=== PATIENT | male | born 1985 | race Caucasian/White ===

== ENCOUNTER → 2020-09-27 14:04 | Outpatient (BNVA) | payer SELFPAY | PROVIDERS: PCP Internal Medicine; Visit Provider Internal Medicine ==

== ENCOUNTER 2021-12-19 11:11 | Outpatient (REF) | payer OTHER, SELFPAY ==
[2021-12-19 11:17] LABS: MANUAL DIFF FLAG NO
[2021-12-19 11:45] LABS: Basophils Absolute Auto 0.1 X10*3/uL (0.0-0.2); Basophils Percent Auto 0.9 % (0-2); Eosinophils Absolute Auto 0.1 X10*3/uL (0.0-0.4); Eosinophils Percent Auto 1.2 % (0-4); Hematocrit 43.4 % (42.0-52.0); Hemoglobin 15.5 g/dl (14.0-18.0); Imm Gran Abs Auto 0.02 X10*3/uL (0.00-0.03); Imm Gran Pct Auto 0.4 % (0.0-0.4); Lymphocytes Absolute Auto 2.1 X10*3/uL (1.2-4.9); Lymphocytes Percent Auto 36.6 % (20-40); Mean Corpuscular HGB Conc 35.7 g/dl (31.0-36.0); Mean Corpuscular Hemoglobin 30.9 pg (27.0-33.0); Mean Corpuscular Volume 86.5 fL (80.0-98.0); Mean Platelet Volume 12.3 fL (9.4-12.4); Monocytes Absolute Auto 0.5 X10*3/uL (0.1-1.2); Monocytes Percent Auto 8.1 % (2-11); Neutrophils Percent Auto 52.8 % (45-73); Platelet Count 220 X10*3/uL (160-400); Red Blood Count 5.02 X10*6/uL (4.60-5.80); Red Cell Distribution Width 11.9 % (11.0-16.0); White Blood Count 5.7 X10*3/uL (4.8-10.8)
[2021-12-19 11:58] LABS: Alanine Aminotransferase 15 U/L (0-40); Albumin Level 4.5 g/dL (3.5-5.0); Alkaline Phosphatase 58 U/L (39-117); Anion Gap 13 (12-20); Aspartate Amino Transferase 16 U/L (5-37); Bilirubin Total 0.6 mg/dL (0.0-1.0); Blood Urea Nitrogen 19 mg/dL (9-16); Calcium 9.2 mg/dL (8.4-10.2); Carbon Dioxide 26 mmol/L (22-29); Chloride 105 mmol/L (96-108); Cholesterol 160 mg/dL; Estimated Glomerular Filt Rate > 60; Glucose Random 95 mg/dL (60-115); HDL Cholesterol 47 mg/dL; LDL Cholesterol Calculated 102 mg/dl; Potassium 3.9 mmol/L (3.3-5.1); Sodium 140 mmol/L (135-145); Total Protein 7.3 g/dL (6.5-8.0); Triglycerides 59 mg/dL
[2021-12-19 12:19] LABS: PSA,Total (Free>4and<10) 0.44 ng/mL (0.00-4.00)
[2021-12-19 12:20] LABS: Appearance Urine Clear; Color Urine Yellow; Glucose Urine UA Negative (Negative); Leukocyte Esterase Urine Negative (Negative); Nitrite Urine Negative (Negative); Specific Gravity - Urine >= 1.030 (1.005-1.025); Urine Blood Negative (Negative); Urine Ketones Negative (Negative); Urine Protein Negative (Neg-Trace)
[2021-12-19 12:27] LABS: Bacteria Urine None Seen (None Seen); Hyaline Casts Urine 0-2 /LPF (0-2); RBC Urine 0-2 /HPF (0-2); Squamous Epithelial Cell Urine 0-2 /HPF (0-2); WBC Urine 0-5 /HPF (0-5)
== END 2021-12-19 11:12 | disposition home or self-care (01) ==
LOC: HO.LNP 11:11
PROVIDERS: Visit Provider Internal Medicine
DX: Z00.00 Encounter for general adult medical examination without abnormal findings (principal); Z12.5 Encounter for screening for malignant neoplasm of prostate; N40.1 Benign prostatic hyperplasia with lower urinary tract symptoms
CPT/HCPCS: 80053; 80061; 81001; 84153; 85025; 87086

== ENCOUNTER 2022-10-21 15:50 | Outpatient (RCR) | payer OTHER, SELFPAY ==
--- NOTE | 2022-10-21 16:46 | MHC.PT.EP ---
[facility] [place] [facility] [place] [facility] [place] [facility] [address] Ana Dyson [address] [phone] F: [phone] F: [phone] F: [phone] F: [phone] Physical Therapy Plan of Care Date of Evaluation: Date of Surgery: one month Diagnosis: sciatica (RL) Assessment: pt is a 36 y/o male presenting to physical therapy w/ referring diagnosis of sciatica. pt's signs and symptoms are consistent w/ lumbar radiculopathy. Impairments include pain, decreased range of motion, decreased strength, impaired functional mobility, impaired postural awareness, and altered ambulation mechanics. pt is a good candidate for skilled PT due to age, potential remediation of impairments, typical disease/condition progression and prognosis, comorbidities, and motivation. pt would benefit from skilled PT intervention to provide a tailored strengthening and stretching exercise program, functional training, gait training, postural re-training, neuromuscular re-education, modalities as needed for pain, equipment safety demonstration. Frequency and Duration: The patient will be seen 2x/wk for 4 wks Short Term Goals: pt will be I w/ HEP to promote self-management of condition. pt will demo proper sitting posture w/ lumbar roll to promote neutral spine w/ seated ADLs. 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 pt will report a statistically significant improvement in self-reported outcome measure, Larisa, to promote return to PLOF. Treatment Plan: Modalities to reduce pain, spasms and effusion. Manual therapy to restore motion and function. Therapeutic exercise to improve strength and flexibility. Neuromuscular re-education for posture and balance. Therapeutic activities to return to functional activities of daily living. Electronically signed by: Lucina Dyer PT, DPT Please sign and return to therapist. Thank you for your referral.
--- NOTE | 2022-11-10 09:18 | MHC.PT.DC ---
[facility] [place] Office [place] Office [place] Office [address] Ana Dyson [address] [phone] F: [phone] F: [phone] F: [phone] F: [phone] Physical Therapy Discharge Report Diagnosis: sciatica (RL) Date of Surgery: one month Date of Evaluation: 10/21/22 Date of Discharge: 11/10/22 Treatments to Date: 1 Cancellations to Date: 0 No Shows to Date: 2 Discharge Status: Visit Non-compliance Discharge Summary: The patient no showed two consecutive appointments. Per [facility] Therapy attendance policy he is being discharged for non-compliance. Electronically signed by: Lucina Dyer PT, DPT Please sign and return to therapist. Thank you for your referral.
== END 2022-11-10 09:18 | disposition home or self-care (01) ==
LOC: HO.PT 15:50
PROVIDERS: PCP Internal Medicine; Visit Provider Internal Medicine
DX: M54.31 Sciatica, right side (principal)
CPT/HCPCS: 97110; 97161

== ENCOUNTER 2022-12-24 11:14 | Outpatient (REF) | payer OTHER, SELFPAY ==
[2022-12-24 11:18] LABS: MANUAL DIFF FLAG NO
[2022-12-24 11:31] LABS: Appearance Urine Clear; Basophils Absolute Auto 0.1 X10*3/uL (0.0-0.2); Basophils Percent Auto 0.9 % (0-2); Color Urine Yellow; Eosinophils Absolute Auto 0.2 X10*3/uL (0.0-0.4); Eosinophils Percent Auto 2.2 % (0-4); Glucose Urine UA Negative (Negative); Hematocrit 46.3 % (42.0-52.0); Hemoglobin 15.9 g/dl (14.0-18.0); Imm Gran Abs Auto 0.03 X10*3/uL (0.00-0.03); Imm Gran Pct Auto 0.4 % (0.0-0.4); Leukocyte Esterase Urine Negative (Negative); Lymphocytes Absolute Auto 2.5 X10*3/uL (1.2-4.9); Lymphocytes Percent Auto 35.4 % (20-40); Mean Corpuscular HGB Conc 34.3 g/dl (31.0-36.0); Mean Corpuscular Hemoglobin 30.7 pg (27.0-33.0); Mean Corpuscular Volume 89.4 fL (80.0-98.0); Mean Platelet Volume 12.6 fL (9.4-12.4); Monocytes Absolute Auto 0.7 X10*3/uL (0.1-1.2); Monocytes Percent Auto 9.5 % (2-11); Neutrophils Absolute Auto 3.6 x10*3/uL (2.0-8.3); Neutrophils Percent Auto 51.6 % (45-73); Nitrite Urine Negative (Negative); PH 5.5 (5.0-9.0); Platelet Count 226 X10*3/uL (160-400); Red Blood Count 5.18 X10*6/uL (4.60-5.80); Urine Blood Negative (Negative); Urine Ketones Negative (Negative); Urine Protein Negative (Neg-Trace); White Blood Count 6.9 X10*3/uL (4.8-10.8)
[2022-12-24 11:33] LABS: Bacteria Urine None Seen (None Seen); Hyaline Casts Urine 0-2 /LPF (0-2); RBC Urine 0-2 /HPF (0-2); Squamous Epithelial Cell Urine 0-2 /HPF (0-2); WBC Urine 0-5 /HPF (0-5)
[2022-12-24 11:39] LABS: Alanine Aminotransferase 40 U/L (0-40); Albumin Level 4.4 g/dL (3.5-5.0); Alkaline Phosphatase 65 U/L (39-117); Anion Gap 11 (12-20); Aspartate Amino Transferase 24 U/L (5-37); Bilirubin Total 0.4 mg/dL (0.0-1.0); Blood Urea Nitrogen 16 mg/dL (9-16); Calcium 9.6 mg/dL (8.4-10.2); Carbon Dioxide 25 mmol/L (22-29); Chloride 105 mmol/L (96-108); Cholesterol 189 mg/dL (<200); Estimated Glomerular Filt Rate > 60; Glucose Fasting 94 mg/dL (60-99); HDL Cholesterol 40 mg/dL (>40); Potassium 3.5 mmol/L (3.3-5.1); Sodium 137 mmol/L (135-145); Total Protein 7.4 g/dL (6.5-8.0); Triglycerides 413 mg/dL (<150)
== END 2022-12-24 11:15 | disposition home or self-care (01) ==
LOC: HO.LNP 11:14
PROVIDERS: Visit Provider Internal Medicine
DX: Z00.00 Encounter for general adult medical examination without abnormal findings (principal); Z20.2 Contact with and (suspected) exposure to infections with a predominantly sexual mode of transmission; E78.1 Pure hyperglyceridemia
CPT/HCPCS: 80053; 80061; 81001; 85025

== ENCOUNTER 2022-12-31 08:56 | Outpatient (REF) | payer OTHER, SELFPAY ==
[2022-12-31 10:44] LABS: HIV AB/AG Nonreactive (Nonreactive); HIV Num 1 0.08 S/CO (0.00-0.99)
[2022-12-31 13:52] LABS: CT PCR NOT DETECTED (Not Detect.); NG PCR NOT DETECTED (Not Detect.)
== END 2022-12-31 08:57 | disposition home or self-care (01) ==
LOC: HO.LAB 08:56
PROVIDERS: PCP Internal Medicine; Visit Provider Internal Medicine
DX: R30.0 Dysuria (principal); Z20.2 Contact with and (suspected) exposure to infections with a predominantly sexual mode of transmission
CPT/HCPCS: 0353U; 36415; 87086; 87389

== ENCOUNTER 2023-04-08 11:39 | Outpatient (REF) | payer OTHER, SELFPAY ==
[2023-04-08 12:35] LABS: Alanine Aminotransferase 22 U/L (0-40); Albumin Level 4.6 g/dL (3.5-5.0); Alkaline Phosphatase 50 U/L (39-117); Aspartate Amino Transferase 22 U/L (5-37); Bilirubin Direct 0.4 mg/dL (0.0-0.5); Bilirubin Total 1.3 mg/dL (0.0-1.0); Cholesterol 181 mg/dL (<200); HDL Cholesterol 39 mg/dL (>40); LDL Cholesterol Calculated 117 mg/dL (<100); Total Protein 7.5 g/dL (6.5-8.0); Triglycerides 129 mg/dL (<150)
[2023-04-08 12:55] LABS: Reflex LDLD? No
== END 2023-04-08 11:40 | disposition home or self-care (01) ==
LOC: HO.LNP 11:39
PROVIDERS: Visit Provider Internal Medicine
DX: E78.1 Pure hyperglyceridemia (principal)
CPT/HCPCS: 80061; 80076

== ENCOUNTER 2024-01-13 12:00 | Outpatient (REF) | payer OTHER, SELFPAY ==
[2024-01-13 12:04] LABS: MANUAL DIFF FLAG NO
[2024-01-13 12:10] LABS: Basophils Absolute Auto 0.1 X10*3/uL (0.0-0.2); Basophils Percent Auto 0.7 % (0-2); Eosinophils Absolute Auto 0.1 X10*3/uL (0.0-0.4); Hematocrit 44.6 % (42.0-52.0); Hemoglobin 15.8 g/dl (14.0-18.0); Imm Gran Abs Auto 0.03 X10*3/uL (0.00-0.03); Imm Gran Pct Auto 0.4 % (0.0-0.4); Lymphocytes Absolute Auto 2.7 X10*3/uL (1.2-4.9); Lymphocytes Percent Auto 38.4 % (20-40); Mean Corpuscular HGB Conc 35.4 g/dl (31.0-36.0); Mean Corpuscular Hemoglobin 30.9 pg (27.0-33.0); Mean Corpuscular Volume 87.3 fL (80.0-98.0); Mean Platelet Volume 12.3 fL (9.4-12.4); Monocytes Absolute Auto 0.6 X10*3/uL (0.1-1.2); Monocytes Percent Auto 8.1 % (2-11); Neutrophils Absolute Auto 3.6 x10*3/uL (2.0-8.3); Neutrophils Percent Auto 51.4 % (45-73); Platelet Count 212 X10*3/uL (160-400); Red Blood Count 5.11 X10*6/uL (4.60-5.80); Red Cell Distribution Width 12.1 % (11.0-16.0); White Blood Count 6.9 X10*3/uL (4.8-10.8)
[2024-01-13 12:13] LABS: Appearance Urine Clear; Color Urine Yellow; Glucose Urine UA Negative (Negative); Leukocyte Esterase Urine Negative (Negative); Nitrite Urine Negative (Negative); PH 6.5 (5.0-9.0); Specific Gravity - Urine 1.015 (1.005-1.025); Urine Blood Negative (Negative); Urine Ketones Negative (Negative); Urine Protein Negative (Neg-Trace)
[2024-01-13 12:16] LABS: Bacteria Urine None Seen (None Seen); Hyaline Casts Urine 0-2 /LPF (0-2); RBC Urine 0-2 /HPF (0-2); Squamous Epithelial Cell Urine 0-2 /HPF (0-2); WBC Urine 0-5 /HPF (0-5)
[2024-01-13 12:26] LABS: Alanine Aminotransferase 24 U/L (0-40); Albumin Level 4.6 g/dL (3.5-5.0); Alkaline Phosphatase 56 U/L (39-117); Anion Gap 9 (12-20); Aspartate Amino Transferase 26 U/L (5-37); Bilirubin Total 1.6 mg/dL (0.0-1.0); Blood Urea Nitrogen 13 mg/dL (9-16); Calcium 9.7 mg/dL (8.4-10.2); Carbon Dioxide 28 mmol/L (22-29); Chloride 104 mmol/L (96-108); Cholesterol 163 mg/dL (<200); Estimated Glomerular Filt Rate > 60; Glucose Fasting 78 mg/dL (60-99); HDL Cholesterol 46 mg/dL (>40); LDL Cholesterol Calculated 96 mg/dL (<100); Potassium 3.8 mmol/L (3.3-5.1); Sodium 137 mmol/L (135-145); Total Protein 7.6 g/dL (6.5-8.0); Triglycerides 108 mg/dL (<150)
== END 2024-01-13 12:01 | disposition home or self-care (01) ==
LOC: HO.LNP 12:00
PROVIDERS: Visit Provider Internal Medicine
DX: Z00.00 Encounter for general adult medical examination without abnormal findings (principal); E78.1 Pure hyperglyceridemia
CPT/HCPCS: 80053; 80061; 81001; 85025

== ENCOUNTER 2025-01-15 11:02 | Outpatient (REF) | payer SELFPAY ==
--- OUTSIDE RECORDS SUMMARY | 2023-11-12 07:14 | XMS_ITS ---
Author Organization Cody Gibson MD Address [address] [place] [phone] Care Team Providers Care Charge Weigher Name Role Phone Cody Gibson Primary Care Provider REASON FOR VISIT work excuse note Encounters Encounter Location Date Provider Diagnosis Cody Gibson MD [address] [place], [place] [phone] 11/12/2023 Cody Gibson Plan Of Treatment Next Appt Details Provider Name:Cody Givens ier, 01/22/2025 10:30:00 AM, [address], [address], [place], [place], [phone], Progress Notes * Nabil ROGERSDOB: [birth year] (37 yo M)Acc No.[id number]:11/12/2023 Patient: Nabil Tejeda :1985 A ge:37 Y S ex:Male Address:[address] [place] [address], [id number] * true * Date: Generated for Printi ng/Faxing/eTransmitting on: 0 01/15/2025 12:31 PM EDT
--- OUTSIDE RECORDS SUMMARY | 2023-11-12 08:45 | XMS_ITS ---
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 Role Phone Cody Gibson Primary Care Provider Allergies No Known Allergies REASON FOR VISIT work note anxiety Medications Medication SIG (Take, Route, Frequency, Duration) Notes Start Date End Date Status Ibuprofen 800 MG 1 tablet with food o r milk as needed Orally every 8 hrs for 10 days 09/29/2022 Not-Taki ng Cyclobenzaprine HCl 5 MG 1 tablet at bed time as needed Orally Once a night for 10 days 09/29/2022 Not-Taking Problems Problem Type SNOMED Code ICD Code Onset Dates Problem Status W/U Status Risk Notes Problem [id number] Situational anxiety (F41.8) Active confirmed Vital Signs Blood pressure systolic 112 mm Hg 11/12/19 24 Blood pressure diastolic 70 mm Hg 024 Height 65 in 11/12/2023 Weight 160 lbs 11/12/2023 BMI 26.62 kg/m2 11/12/2023 Encounters Encounter Location Date Provider Diagnosis Cody Gibson MD [address] [place] [phone] 11/12/2023 Cody Gibson Situational anxiety F41.8 Assessments Encounter Date Diagnosis (ICD Code) Assessment Notes Treatment Notes Treatment Clinical Notes Section Notes 11/12/2023 Situational anxiety (ICD-10 - F41.8) has not been able to work this week.feels at times he is not able to concentrate. is going to [facility] and speaking with a counsellor. they are trying to get him in contact with a psychologist. have given him the information of [facility] [place] Plan Of Treatment Treatment Notes Assessment Notes Situational anxiety has not been able to work this week.feels at times he is not able to concentrate. is going to [facility] and speaking with a counsellor. they are trying to get him in contact with a psychologist. have given him the information of [facility] [place] Next Appt Details Provider Name:Cody Givens ier, 01/22/2025 10:30:00 AM, [address] [place] [address], [address], [place], [place], [phone], Progress Notes * Nabil ROGERSDOB: [birth year] (37 yo M)Acc No.[id number]:11/12/2023 Progress Notes Patient: Nabil Tejeda Provider: Savannah Gibson MD :1985 A ge:37 Y S ex:Male Date:11/12/2023 Address:[address] [place], [place] [phone] Subjective: * Chief Complaints: * W ork note anxiety * HPI: S ymptom(s): patient is a 37 yo male having a lot of stress and is very anxious. is going to a counsellor to speak about these issues. * ROS: G eneral/Constitutional: Denies C hills. D enies F atigue. D enies F ever. D enies H eadache. E NT: Patient denies d ecreased sense of smell, any loss of taste, sore throat. D enies S ore throat. R espiratory: Denies C ough. D enies S hortness of breath at rest. D enies S hortness of breath with exertion. G astrointestinal: Denies D iarrhea. D enies N ausea. M usculoskeletal: Patient denies m uscle aches. P eripheral Vascular: Patient denies r ed and blue toes. P sychiatric: Admits A nxiety. D enies D epressed mood. D enies D ifficulty sleeping. D enies E ating disorder. D enies L oss of appetite.?Admits S tressors. D enies S ubstance abuse. D enies S uicidal thoughts. * Medical History: * Surgical History: * Hospitalization/Major Diagno stic Procedure: * Medications: N ot-Taking/PRNIbuprofen 800 MG Tablet 1 tablet with food or milk as needed Orally every 8 hrsCyclobenzaprine HCl 5 MG Tablet 1 tablet at bedtime as needed Orally Once a nightNot-Taking/PRN Ibuprofen 800 MG Tablet 1 tablet with food or milk as needed Orally every 8 hrsNot-Taking/PRN Cyclobenzaprine HCl 5 MG Tablet 1 tablet at bedtime as needed Orally Once a night * Allergies: N .K.D.A.yes[Allergies Verified] Objective: * Vitals: H t: 65, Wt:160, BMI:26.62, BP:112/70. * Examination: G eneral Examination: GENERAL APPEARANCE: alert, well hydrated, in no distress? / appears anxious. Assessment: * Assessment: 1. S ituational anxiety - F41.8 (Primary) Plan: * Treatment: * Procedure Codes: * * Sign off status: Completed true * Provider: Savannah Gibson MD Date: 0 11/12/2023 Generated for Jazmin merino/Lacy/Jaycobitting on: 0 01/15/2025 12:32 PM EDT History and Physical Notes * HPI (History of Present Illness) Category Sub-Category Detail Notes Category Not es Symptom(s) patient is a 37 yo male having a lot of stress and is very anxious. is going to a counsellor to speak about these issues. Examination Category Sub-Category Detail Notes Category Not es General Examination GENERAL APPEARANCE: alert, w ell hydrated, in no distress / appears anxious
--- OUTSIDE RECORDS SUMMARY | 2024-01-13 03:30 | XMS_ITS ---
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 Name Role Phone Cody Gibson Primary Care Provider [phone] Results Component Value Reference Range Notes Complete Blood Count Auto Di ff Reviewed date:01/13/2024 12:39:22 PM Interpretation: Performing Lab:[facility], [address] [place] [phone] Notes/Report: White Blood Count 6.9 4.8-10.8 X10*3/uL Red Blood Count 5.11 4.60-5.80 X10*6/uL Hemoglobin 15.8 14.0-18.0 g/dl Hematocrit 44.6 42.0-52.0 % Mean Corpuscular Volume 87.3 80.0-98.0 fL Mean Corpuscular Hemoglobin 30.9 27.0-33.0 pg Mean Corpuscular HGB Conc 35.4 31.0-36.0 g/dl Red Cell Distribution Width 12.1 11.0-16.0 % Platelet Count 212 160-400 X10*3/uL Mean Platelet Volume 12.3 9.4-12.4 fL Neutrophils Percent Auto 51.4 45-73 % Imm Gran Pct Auto 0.4 0.0-0.4 % Lymphocytes Percent Auto 38.4 20-40 % Monocytes Percent Auto 8.1 2-11 % Eosinophils Percent Auto 1.0 0-4 % Basophils Percent Auto 0.7 0-2 % NRBC Pct Auto 0.0 0.0-0.2 /100WBC Neutrophils Absolute Auto 3.6 2.0-8.3 x10*3/u L Imm Gran Abs Auto 0.03 0.00-0.03 X10*3/uL Lymphocytes Absolute Auto 2.7 1.2-4.9 X10*3/u L Monocytes Absolute Auto 0.6 0.1-1.2 X10*3/uL Eosinophils Absolute Auto 0.1 0.0-0.4 X10*3/u L Basophils Absolute Auto 0.1 0.0-0.2 X10*3/uL NRBC Abs Auto 0.000 0.0-0.012 X10*3/uL Comprehensive [place]. Panel Fa st Reviewed date:01/13/2024 12:35:16 PM Interpretation: Performing Lab:[facility], [address] [place] [phone] Notes/Report: Sodium 137 135-145 mmol/L Potassium 3.8 3.3-5.1 mmol/L Chloride 104 96-108 mmol/L Carbon Dioxide 28 22-29 mmol/L Anion Gap 9 12-20 Blood Urea Nitrogen 13 9-16 mg/dL Creatinine 0.88 0.5-1.4 mg/dL Estimated Glomerular Filt Rate > 60 NOTE: For -[place] individuals, multiply the result by 1.210. Chronic Kidney Disease: Estimated GFR < 60 mL/min/1.73m2 Severe Kidney Disease: Estimated GFR < 15 mL/min/1.73m2 Glucose Fasting 78 60-99 mg/dL Calcium 9.7 8.4-10.2 mg/dL Bilirubin Total 1.6 0.0-1.0 mg/dL Aspartate Amino Transferase 26 5-37 U/L Alanine Aminotransferase 24 0-40 U/L Total Protein 7.6 6.5-8.0 g/dL Albumin Level 4.6 3.5-5.0 g/dL Alkaline Phosphatase 56 39-117 U/L Lipid Panel Reviewed date:01/13/2024 12:34:52 PM Interpretation: Performing Lab:[facility], [address] [place] [phone] Notes/Report: Triglycerides 108 <150 mg/dL Desirable Triglyceride: less than 150 mg/dL Borderline High Triglyceride 150-199 mg/dL High Triglyceride: 200-499 mg/dL Very High Triglyceride: greater than or equal to 5OO mg/dL Cholesterol 163 <200 mg/dL Desirable Cholesterol: less than 200 mg/dL Borderline High Cholesterol: 200-239 mg/dL High Cholesterol: greater than 239 mg/dL LDL Cholesterol Calculated 96 <100 mg/dL Desirable LDL: less than 100 mg/dL Near Optimal/Above Optimal LDL: 110-129 mg/dL Borderline High LDL: 130-159 mg/dL High LDL: 160-189 mg/dL Very High LDL: greater than or equal to 190 mg/dL HDL Cholesterol 46 >40 mg/dL Desirable HDL: greater than 40 mg/dL Note: This HDL assay may give artificially low results in patients with liver disease. UA ClnCatch+Micro w/rflx Cul t Reviewed date:01/13/2024 12:37:06 PM Interpretation: Performing Lab:[facility], [address] [place] [phone] Notes/Report: Urine, Clean Catch Color Urine Yellow Appearance Urine Clear PH 6.5 5.0-9.0 Glucose Urine UA Negative Negative mg/dL Urine Blood Negative Negative Specific [place] - Urine 1.015 1.005-1.025 Urine Protein Negative Neg-Trace mg/dL Urine Ketones Negative Negative mg/dL Nitrite Urine Negative Negative Leukocyte Esterase Urine Negative Negative RBC Urine 0-2 0-2 /HPF WBC Urine 0-5 0-5 /HPF Squamous Epithelial Cell Urine 0-2 0-2 /HPF Bacteria Urine None Seen None Seen Hyaline Casts Urine 0-2 0-2 /LPF REASON FOR VISIT yearly fasting labs Encounters Encounter Location Date Provider Diagnosis Cody Gibson MD [address] [place] [phone] 01/13/2024 Cody Gibson Blood tests for routine general physical examination Z00.00 and High triglycerides E78.1 Assessments Encounter Date Diagnosis (ICD Code) Assessment Notes Treatment Notes Treatment Clinical Notes Section Notes 01/13/2024 Blood tests for routine general physical examination (ICD-10 - Z00.00) 01/13/2024 High triglycerides (ICD-10 - E78.1) Plan Of Treatment Next Appt Details Provider Name:Cody combs, 01/22/2025 10:30:00 AM, [address], [address], [place], [place], [phone], Progress Notes * James ROGERS: 8 (39 yo M)Acc No.[id number]:01/13/2024 Progress Note Patient: Nabil KOHLER Provider: Savannah Gibson MD :1985 A ge:38 Y S ex:Male Date:01/13/2024 Address:[address] [place] [address] Subjective: * Chief Complaints: * 1 . Yearly fasting labs. * Medical History: Objective: * Vitals: Assessment: * Assessment: 1. B lood tests for routine general physical examination - Z00.00 (Primary) 2 .?High triglycerides - E78.1 Plan: * Treatment: 2. H igh triglycerides L AB: Complete Blood Count Auto Diff (Collection Date & Time - 01/13/2024 07:30 AM) L AB: Comprehensive [place]. Panel Fast (Collection Date & Time - 01/13/2024 07:30 AM) L AB: Lipid Panel (Collection Date & Time - 01/13/2024 07:30 AM) L AB: UA ClnCatch+Micro w/rflx Cult (Collection Date & Time - 01/13/2024 07:30 AM) * Procedure Codes: 3 6415 VENIPUNCT, ROUTINE* * * The named appointment provid er may or may not be the originator of this progress note, and it is not deemed complete until electronically signed by the appointment provider. Sign off status: Pending * Provider: Savannah Gibson MD Date: 0 01/13/2024 Generated for Jazmin merino/Lacy/Jaycobitting on: 0 01/15/2025 12:31 PM EDT
--- OUTSIDE RECORDS SUMMARY | 2024-01-20 05:30 | XMS_ITS ---
Author Organization Cody Gibson MD Address [address] [place], [place] [id number] Care Team Providers Care Tunneller Name Role Phone Cody Gibson Primary Care Provider Allergies No Known Allergies Reason For Referral Reason hemangioma of skin Diagnosis 1 Hemangioma of skin ( D18.01) Referral Organization Cody Gibson MD Referring Provider First Name Cody Referring Provider Last Name Paige Referring Provider Speciality Internal M edicine Referred Provider [facility] Referred Provider Specialty Dermatology General Notes Jania Davis 01/27/2024 10:51:47 AM EDT > REFERRAL FAXED ON 01/20/24 , I CALLED TO TRY TO GET APPT BUT NO CALL BACK . I GAVE PATIENT THE NUMBER TO CALL THEM FOR APPT, Jania Davis 02/18/2024 01:45:12 PM EDT > N Justin CISSE HAS THE REFERRAL AND AALN CAN CALL AND MAKE HIS APPT. I DID CALL TO LET HIM KNOW, Jania Davis 03/31/2024 10:12:42 AM EST > APPT 09/01/24 . PATIENT AWARE, Jania Davis 09/04/2024 01:36:48 PM >OFFICE NOTE RECD Referral Priority Routine Referral Appointment Date 09/01/2024 REASON FOR VISIT annuaL visit Medications Medication SIG (Take, Route, Frequency, Duration) Notes Start Date End Date Status Ibuprofen 800 MG 1 tablet with food o r milk as needed Orally every 8 hrs for 10 days 09/29/2022 Not-Taki ng Cyclobenzaprine HCl 5 MG 1 tablet at bed time as needed Orally Once a night for 10 days 09/29/2022 Not-Taking Social History Tobacco Use: Social History Observation Description Date Details (start date - stop date) Never Smoker NA - NA Tobacco Use/Smoking Question Answer Notes Patient is a nonsmoker Additional Findings: Tobacco Non-User Cu rrent non-smoker, currently using no form of tobacco Alcohol Screen Question Answer Notes Did you have a drink contain ing alcohol in the past year? Yes How often did you have a dri nk containing alcohol in the past year? 4 or more times a week (4 points) How often did you have 6 or more drinks on one occasion in the past year? Never (0 point) Points 4 Interpretation Positive Vital Signs Blood pressure systolic 112 mm Hg 01/20/20 24 Blood pressure diastolic 68 mm Hg 024 Height 65 in 01/20/2024 Weight 168 lbs 01/20/2024 BMI 27.95 kg/m2 01/20/2024 weight is up 8 pounds since 11-12-23 Encounters Encounter Location Date Provider Diagnosis Cody Gibson MD [address] [place] [address] [place] [phone] 01/20/2024 Cody Gibson Hemangioma of skin D18.01 ; Annual physical exam Z00.00 ; High triglycerides E78.1 and Depression screening Z13.31 Assessments Encounter Date Diagnosis (ICD Code) Assessment Notes Treatment Notes Treatment Clinical Notes Section Notes 01/20/2024 Hemangioma of skin (ICD-10 - D18.01) referral to [facility]/ REFERRAL AND NOTES FAXED TO [facility] 01/20/2024 Annual physical exam (ICD-10 - Z00.00) labs reviewed and discused with patient 01/20/2024 High triglycerides (ICD-10 - E78.1) stable, will continue current regiment 01/20/2024 Depression screening (ICD-10 - Z13.31) negative screen Plan Of Treatment Treatment Notes Assessment Notes Hemangioma of skin [facility] REFERRAL AND NOTES FAXED TO [facility] Annual physical exam labs reviewed and d iscused with patient High triglycerides stable, will continu e current regiment Depression screening negative screen Referrals Referral Date Details 01/20/2024 01/20/2024, milo carter of skin, [facility] Next Appt Details Follow Up: 1 Year, Reason: Provider Name:Cody Barbara Givens ier, 01/22/2025 10:30:00 AM, [address], [address], [place], [place], [phone], Progress Notes * Alan ROGERSDOB: [birth year] (38 yo M)Acc No.[id number]:01/20/2024 Progress Notes Patient: Alan Tejeda Provider: Savannah Gibson MD :1985 A ge:38 Y S ex:Male Date:01/20/2024 Address:[address] [place] [address] , [facility] Subjective: * Chief Complaints: * a nnuaL visit * HPI: D epression Screening: PHQ-9 L ittle interest or pleasure in doing things N ot at all, F eeling down, depressed, or hopeless N ot at all, T rouble falling or staying asleep, or sleeping too much N ot at all, F eeling tired or having little energy N ot at all, P oor appetite or overeating N ot at all, F eeling bad about yourself or that you are a failure, or have let yourself or your family down N ot at all, T rouble concentrating on things, such as reading the newspaper or watching television N ot at all, M oving or speaking so slowly that other people could have noticed; or the opposite, being so fidgety or restless that you have been moving around a lot more than usual N ot at all, T houghts that you would be better off or of hurting yourself in some way N ot at all, T otal Score 0 . I nterpretation and Intervention D epression Screening Findings N egative, F ollow-Up for Depression : review of PHQ-9 found negative result, no follow-up needed. C ommunication Needs: Communication Needs D oes the patient have a hearing impairment N o, D oes the patient have a vision impairment? N o, D oes the patient have a cognition impairment? N o. S JESSICA Questions: SDOH Questions I n the past year have you been worried about losing housing? N o, I n the past year have you or any family members you live with been unable to get any of the following when it was really needed? Check all that apply: N one. * ROS: G eneral/Constitutional: Change in appetite d enies. C hills d enies. F ever d enies. O phthalmologic: Blurred vision d enies. D ischarge d enies. P ain d enies. E NT: Decreased hearing d enies. S ore throat d enies.?Swollen glands d enies. E ndocrine: Cold intolerance d enies. E xcessive thirst d enies. H eat intolerance d enies. W eight loss d enies. R espiratory: Cough d enies. S hortness of breath at rest d enies. S hortness of breath with exertion d enies. W heezing d enies. C ardiovascular: Chest pain at rest d enies. C hest pain with exertion?denies. I rregular heartbeat d enies. S hortness of breath d enies. ? G astrointestinal: Abdominal pain d enies. C hange in bowel habits d enies. D iarrhea d enies. N ausea d enies. R ectal bleeding d enies. V omiting d enies . G enitourinary: Patient complaining of o ccasionally stinging with urination. comes if he doesn't drink enough water. B lood in urine d enies. D ifficulty urinating d enies. F requent urination d enies. M usculoskeletal: Painful joints d enies. W eakness d enies. ? S kin: Dry skin d enies. I tching d enies. D enies?Mole(s), changes in moles, new moles or any lesions of concern. D enies P hotosensitivity. R ghada d enies. N eurologic: Dizziness d enies. F ainting d enies. H eadache?denies. * Medical History: * Surgical History: * Hospitalization/Major Diagno stic Procedure: * Family History: F ather: alive 62 yrs. M other: alive 55 yrs. 1 brother(s) . . Denies mental health/substance abuse family history, Denies mental health/substance abuse family history. * Social History: T obacco Use: T obacco Use/Smoking P atient is a n onsmoker, A dditional Findings: Tobacco Non-User C urrent non-smoker, currently using no form of tobacco. D rugs/Alcohol: A lcohol Screen D id you have a drink containing alcohol in the past year? Y es, H ow often did you have a drink containing alcohol in the past year? 4 or more times a week (4 points), H ow often did you have 6 or more drinks on one occasion in the past year? N ever (0 point), P oints 4 , I nterpretation P ositive. M iscellaneous: C affeine: yes, frequency:, 1-2 cups per day. no Children. no Exercise. Housing: owning. Living with: partner. Pets: cats: dogs: 2 dogs. Travel outside of the [place]: yes, [place]. * Medications: N ot-Taking/PRNIbuprofen 800 MG Tablet 1 tablet with food or milk as needed Orally every 8 hrsCyclobenzaprine HCl 5 MG Tablet 1 tablet at bedtime as needed Orally Once a nightMedication List reviewed and reconciled with the patientNot-Taking/PRN Ibuprofen 800 MG Tablet 1 tablet with food or milk as needed Orally every 8 hrsNot-Taking/PRN Cyclobenzaprine HCl 5 MG Tablet 1 tablet at bedtime as needed Orally Once a nightMedication List reviewed and reconciled with the patient * Allergies: N .K.D.A.yes[Allergies Verified] Objective: * Vitals: H t: 65, Wt:168, BMI:27.95, BP:112/68 weight is up 8 pounds since 11-12-23. * P ast Orders: L ab:Complete Blood Count Auto Diff (Order Date - 01/13/2024) (Collection Date - 01/13/2024) Value Reference Range White Blood Count 6.9 4.8-10.8 - X10*3/uL Red Blood Count 5.11 4.60-5.80 - X10*6/uL Hemoglobin 15.8 14.0-18.0 - g/dl Hematocrit 44.6 42.0-52.0 - % Mean Corpuscular Volume 87.3 80.0-98.0 - fL Mean Corpuscular Hemoglobin 30.9 27.0-33.0 - pg Mean Corpuscular HGB Conc 35.4 31.0-36.0 - g/ dl Red Cell Distribution Width 12.1 11.0-16.0 - % Platelet Count 212 160-400 - X10*3/uL Mean Platelet Volume 12.3 9.4-12.4 - fL Neutrophils Percent Auto 51.4 45-73 - % Imm Gran Pct Auto 0.4 0.0-0.4 - % Lymphocytes Percent Auto 38.4 20-40 - % Monocytes Percent Auto 8.1 2-11 - % Eosinophils Percent Auto 1.0 0-4 - % Basophils Percent Auto 0.7 0-2 - % NRBC Pct Auto 0.0 0.0-0.2 - /100WBC Neutrophils Absolute Auto 3.6 2.0-8.3 - x10* 3/uL Imm Gran Abs Auto 0.03 0.00-0.03 - X10*3/uL Lymphocytes Absolute Auto 2.7 1.2-4.9 - X10* 3/uL Monocytes Absolute Auto 0.6 0.1-1.2 - X10*3/ uL Eosinophils Absolute Auto 0.1 0.0-0.4 - X10* 3/uL Basophils Absolute Auto 0.1 0.0-0.2 - X10*3/ uL NRBC Abs Auto 0.000 0.0-0.012 - X10*3/uL L ab:Comprehensive [place]. Panel Fast (Order Date - 01/13/2024) (Collection Date - 01/13/2024) Value Reference Range Sodium 137 135-145 - mmol/L Bilirubin Total 1.6 H 0.0-1.0 - mg/dL Aspartate Amino Transferase 26 5-37 - U/L Alanine Aminotransferase 24 0-40 - U/L Total Protein 7.6 6.5-8.0 - g/dL Albumin Level 4.6 3.5-5.0 - g/dL Alkaline Phosphatase 56 39-117 - U/L Potassium 3.8 3.3-5.1 - mmol/L Chloride 104 96-108 - mmol/L Carbon Dioxide 28 22-29 - mmol/L Anion Gap 9 L 12-20 - Blood Urea Nitrogen 13 9-16 - mg/dL Creatinine 0.88 0.5-1.4 - mg/dL Estimated Glomerular Filt Rate > 60 - Glucose Fasting 78 60-99 - mg/dL Calcium 9.7 8.4-10.2 - mg/dL L ab:Lipid Panel (Order Date - 01/13/2024) (Collection Date - 01/13/2024) Value Reference Range Triglycerides 108 <150 - mg/dL Cholesterol 163 <200 - mg/dL LDL Cholesterol Calculated 96 <100 - mg/dL HDL Cholesterol 46 >40 - mg/dL L ab:UA ClnCatch+Micro w/rflx Cult (Order Date - 01/13/2024) (Collection Date - 01/13/2024) Value Reference Range Color Urine Yellow - Appearance Urine Clear - PH 6.5 5.0-9.0 - Glucose Urine UA Negative Negative - mg/dL Urine Blood Negative Negative - Specific [place] - Urine 1.015 1.005-1.025 - Urine Protein Negative Neg-Trace - mg/dL Urine Ketones Negative Negative - mg/dL Nitrite Urine Negative Negative - Leukocyte Esterase Urine Negative Negative - RBC Urine 0-2 0-2 - /HPF WBC Urine 0-5 0-5 - /HPF Squamous Epithelial Cell Urine 0-2 0-2 - /HP F Bacteria Urine None Seen None Seen - Hyaline Casts Urine 0-2 0-2 - /LPF * Examination: G eneral Examination: GENERAL APPEARANCE: w ell developed, well nourished, in no acute distress. HEAD: n ormocephalic, atraumatic. EYES: p upils equal, round, reactive to light and accommodation, sclera non-icteric. EARS: n ormal. ORAL CAVITY: m ucosa moist. THROAT: c lear. NECK/THYROID: n radha supple, full range of motion, no cervical lymphadenopathy, no bruits. SKIN: w arm and dry, no suspicious lesions. HEART: r egular rate and rhythm, S1, S2 normal, no murmurs.? LUNGS: c lear to auscultation bilaterally. ABDOMEN: s oft, nontender, nondistended, bowel sounds present, normal, no organomegaly , no masses palpable. MALE GENITOURINARY: c ircumcised, no testicular mass, testes descended bilaterally. EXTREMITIES: n o clubbing, cyanosis, or edema. NEUROLOGIC: n onfocal, motor strength normal upper and lower extremities, sensory exam intact. Assessment: * Assessment: 1. A nnual physical exam - Z00.00 (Primary) 2 . H emangioma of skin - D18.01 3 .?High triglycerides - E78.1 4 . D epression screening - Z13.31 Plan: * Treatment: 2. H emangioma of skin Notes: referral to [facility]/ [facility] ? Referral To:[facility] Dermatology Reason:hemangioma of skin 3. H igh triglycerides Notes: stable, will continue current regiment 4. D epression screening Notes: negative screen * Procedure Codes: * Preventive Medicine: Counseling: C are goal follow-up plan: C ounseling for abnormal BMI provided?Yes, A anastasia Normal BMI Follow-up G iving encouragement to exercise. * Follow Up: 1 Year * * Sign off status: Completed true * Provider: Savannah Gibson MD Date: 1 Generated for Jazmin merino/Lacy/eTransmitting on: 0 01/15/2025 12:32 PM EDT History and Physical Notes * HPI (History of Present Illness) Category Sub-Category Detail Notes Category Not es Depression Screening PHQ-9 Little inte rest or pleasure in doing things: Not at all Feeling down, depressed, or hopeless: No t at all Trouble falling or staying asleep, or sl eeping too much: Not at all Feeling tired or having little energy: N ot at all Poor appetite or overeating: Not at all Feeling bad about yourself o r that you are a failure, or have let yourself or your family down: Not at all Trouble concentrating on thi ngs, such as reading the newspaper or watching television: Not at all Moving or speaking so slowly that other people could have noticed; or the opposite, being so fidgety or restless that you have been moving around a lot more than usual: Not at all Thoughts that you would be b bairon off or of hurting yourself in some way: Not at all Total Score: 0 Interpretation and Intervention Depression Rosye shila Findings: Negative Follow-Up for Depression: : review of PH Q-9 found negative result, no follow-up needed SDOH Questions SDOH Questions In the past year have you been worried about losing housing?: No In the past year have you or any family members you live with been unable to get any of the following when it was really needed? Check all that apply:: None Communication Needs Communication Needs Does the patient have a hearing impairment: No Does the patient have a vision impairmen t?: No Does the patient have a cognition impair ment?: No Examination Category Sub-Category Detail Notes Category Not es General Examination GENERAL APPEARANCE: well dev eloped, well nourished, in no acute distress HEAD: normocephalic, atrau matic EYES: pupils equal, round, reactive to light and accommodation, sclera non-icteric EARS: normal THROAT: clear NECK/THYROID: neck supple, full ra nge of motion, no cervical lymphadenopathy, no bruits HEART: regular rate and rhy thm, S1, S2 normal, no murmurs LUNGS: clear to auscultatio n bilaterally ABDOMEN: soft, nontender, non distended, bowel sounds present, normal, no organomegaly , no masses palpable NEUROLOGIC: nonfocal, motor stre ngth normal upper and lower extremities, sensory exam intact SKIN: warm and dry, no tiarra picious lesions EXTREMITIES: no clubbing, cyanosi s, or edema MALE GENITOURINARY: circumcised, no test icular mass, testes descended bilaterally RECTAL EXAM: ORAL CAVITY: mucosa moist Consultation Request Notes Referral Date Referring Provider Referred Provider Not es 01/20/2024 Cody Gibson [facility], [facility] hemangioma of skin
--- OUTSIDE RECORDS SUMMARY | 2025-01-15 03:30 | XMS_ITS ---
Author Organization Cody Gibson MD Address [address] [place], [place] [id number] Care Team Providers Care Wood Boatbuilder Name Role Phone Cody Gibson Primary Care Provider [phone] Results Component Value Reference Range Notes Complete Blood Count Auto Di ff (Not yet reviewed by provider) Interpretation: Performing Lab:[facility], [address] [place] [phone] Notes/Report: White Blood Count 6.7 4.8-10.8 X10*3/uL Red Blood Count 5.21 4.60-5.80 X10*6/uL Hemoglobin 15.9 14.0-18.0 g/dl Hematocrit 45.2 42.0-52.0 % Mean Corpuscular Volume 86.8 80.0-98.0 fL Mean Corpuscular Hemoglobin 30.5 27.0-33.0 pg Mean Corpuscular HGB Conc 35.2 31.0-36.0 g/dl Red Cell Distribution Width 11.8 11.0-16.0 % Platelet Count 247 160-400 X10*3/uL Mean Platelet Volume 12.2 9.4-12.4 fL Neutrophils Percent Auto 47.6 45-73 % Imm Gran Pct Auto 0.6 0.0-0.4 % Lymphocytes Percent Auto 39.5 20-40 % Monocytes Percent Auto 9.5 2-11 % Eosinophils Percent Auto 1.7 0-4 % Basophils Percent Auto 1.1 0-2 % NRBC Pct Auto 0.0 0.0-0.2 /100WBC Neutrophils Absolute Auto 3.2 2.0-8.3 x10*3/u L Imm Gran Abs Auto 0.04 0.00-0.03 X10*3/uL Lymphocytes Absolute Auto 2.6 1.2-4.9 X10*3/u L Monocytes Absolute Auto 0.6 0.1-1.2 X10*3/uL Eosinophils Absolute Auto 0.1 0.0-0.4 X10*3/u L Basophils Absolute Auto 0.1 0.0-0.2 X10*3/uL NRBC Abs Auto 0.000 0.0-0.012 X10*3/uL Comprehensive [place]. Panel Fa st (Not yet reviewed by provider) Interpretation: Performing Lab:[facility], [address] [facility] [facility], [place] [phone] Notes/Report: Sodium 140 135-145 mmol/L Lipemic sampl e cleared prior to analysis Potassium 3.6 3.3-5.1 mmol/L Lipemic sampl e cleared prior to analysis Chloride 107 96-108 mmol/L Lipemic sample cleared prior to analysis Carbon Dioxide 25 22-29 mmol/L Lipemic sampl e cleared prior to analysis Anion Gap 12 12-20 Blood Urea Nitrogen 13 9-16 mg/dL Lipemic sample cleared prior to analysis Creatinine 0.86 0.5-1.4 mg/dL Lipemic sample cleared prior to analysis Estimated Glomerular Filt Rate > 60 Chronic Kidney Disease: Estimated GFR < 60 mL/min/1.73m2 Severe Kidney Disease: Estimated GFR < 15 mL/min/1.73m2 Glucose Fasting 91 60-99 mg/dL Lipemic samp le cleared prior to analysis Calcium 9.0 8.4-10.2 mg/dL Lipemic sampl e cleared prior to analysis Bilirubin Total 0.4 0.0-1.0 mg/dL Lipemic miguel ple cleared prior to analysis Aspartate Amino Transferase 38 5-37 U/L Lipemic sample cleared prior to analysis Alanine Aminotransferase 44 0-40 U/L Lip emic sample cleared prior to analysis Total Protein 7.0 6.5-8.0 g/dL Lipemic sample cleared prior to analysis Albumin Level 4.4 3.5-5.0 g/dL Lipemic sample cleared prior to analysis Alkaline Phosphatase 71 39-117 U/L Lipemic sample cleared prior to analysis Lipid Panel (Not yet review ed by provider) Interpretation: Performing Lab:[facility], [address] [place] [phone] Notes/Report: Triglycerides 542 <150 mg/dL Marked Lipemia. Desirable Triglyceride: less than 150 mg/dL Borderline High Triglyceride 150-199 mg/dL High Triglyceride: 200-499 mg/dL Very High Triglyceride: greater than or equal to 5OO mg/dL Cholesterol 169 <200 mg/dL Marked Lipemia. Interpret result with caution. Desirable Cholesterol: less than 200 mg/dL Borderline High Cholesterol: 200-239 mg/dL High Cholesterol: greater than 239 mg/dL LDL Cholesterol Calculated TNP <100 mg/dL Unable to calculate the LDL. The formula of Friedwald, Polk, and Sharon is only valid if the triglycerides are less than 400 mg/dl. HDL Cholesterol 35 >40 mg/dL Marked Lipemia. Interpret result with caution. Desirable HDL: greater than 40 mg/dL Note: This HDL assay may give artificially low results in patients with liver disease. UA ClnCatch+Micro w/rflx Cul t (Not yet reviewed by provider) Interpretation: Performing Lab:[facility], [address] [place] [phone] Notes/Report: Urine, Clean Catch Color Urine Yellow Appearance Urine Clear PH 6.0 5.0-9.0 Glucose Urine UA Negative Negative mg/dL Urine Blood Negative Negative Specific [place] - Urine 1.010 1.005-1.025 Urine Protein Negative Neg-Trace mg/dL Urine Ketones Negative Negative mg/dL Nitrite Urine Negative Negative Leukocyte Esterase Urine Negative Negative RBC Urine 0-2 0-2 /HPF WBC Urine 0-5 0-5 /HPF Squamous Epithelial Cell Urine 0-2 0-2 /HPF Bacteria Urine None Seen None Seen Hyaline Casts Urine 0-2 0-2 /LPF REASON FOR VISIT FASTING LABS Encounters Encounter Location Date Provider Diagnosis Cody Gibson MD [address] [place], [place] [id number] 01/15/2025 Cody Gibson Blood tests for routine general physical examination Z00.00 and High triglycerides E78.1 Assessments Encounter Date Diagnosis (ICD Code) Assessment Notes Treatment Notes Treatment Clinical Notes Section Notes 01/15/2025 Blood tests for routine general physical examination (ICD-10 - Z00.00) 01/15/2025 High triglycerides (ICD-10 - E78.1) Plan Of Treatment Pending Test Test Name Order Date Complete Blood Count Auto Diff Comprehensive [place]. Panel Fast 5 Lipid Panel 01/15/2025 UA ClnCatch+Micro w/rflx Cult 01/15/2025 Next Appt Details Provider Name:Cody Givens ier, 01/22/2025 10:30:00 AM, [address] [facility] [address], [address] [facility], [place], [place], [id number], Progress Notes * Nabil ROGERSDOB: [birth year] (39 yo M)Acc No.[id number]:01/15/2025 Progress Note Patient: Nabil KOHLER Provider: Savannah Gibson MD :1985 A ge:39 Y S ex:Male Date:01/15/2025 Address:[address] [place] [address] Subjective: * Chief Complaints: * 1 . FASTING LABS. * Medical History: Objective: * Vitals: Assessment: * Assessment: 1. B lood tests for routine general physical examination - Z00.00 (Primary) 2 .?High triglycerides - E78.1 Plan: * Treatment: 2. H igh triglycerides L AB: Complete Blood Count Auto Diff (Collection Date & Time - 01/15/2025 07:30 AM) L AB: Comprehensive [place]. Panel Fast (Collection Date & Time - 01/15/2025 07:30 AM) L AB: Lipid Panel (Collection Date & Time - 01/15/2025 07:30 AM) L AB: UA ClnCatch+Micro w/rflx Cult (Collection Date & Time - 01/15/2025 07:30 AM) * * The named appointment provid er may or may not be the originator of this progress note, and it is not deemed complete until electronically signed by the appointment provider. Sign off status: Pending * Provider: Savannah Gibson MD Date: 0 01/15/2025 Generated for Jazmin merino/Lacy/eTransmitting on: 0 01/15/2025 12:32 PM EDT
[2025-01-15 11:04] LABS: MANUAL DIFF FLAG NO
[2025-01-15 11:09] LABS: Hematocrit 45.2 % (42.0-52.0); Hemoglobin 15.9 g/dl (14.0-18.0); Imm Gran Abs Auto 0.04 X10*3/uL (0.00-0.03); Imm Gran Pct Auto 0.6 % (0.0-0.4); Lymphocytes Absolute Auto 2.6 X10*3/uL (1.2-4.9); Mean Corpuscular HGB Conc 35.2 g/dl (31.0-36.0); Mean Corpuscular Hemoglobin 30.5 pg (27.0-33.0); Mean Corpuscular Volume 86.8 fL (80.0-98.0); NRBC Abs Auto 0.000 X10*3/uL (0.0-0.012); NRBC Pct Auto 0.0 /100WBC (0.0-0.2); Platelet Count 247 X10*3/uL (160-400); Red Blood Count 5.21 X10*6/uL (4.60-5.80); White Blood Count 6.7 X10*3/uL (4.8-10.8)
[2025-01-15 11:26] LABS: Appearance Urine Clear; Glucose Urine UA Negative (Negative); PH 6.0 (5.0-9.0); Specific Gravity - Urine 1.010 (1.005-1.025)
[2025-01-15 11:30] LABS: Cholesterol 169 mg/dL (<200); HDL Cholesterol 35 mg/dL (>40); Triglycerides 542 mg/dL (<150)
[2025-01-15 12:04] LABS: Alanine Aminotransferase 44 U/L (0-40); Albumin Level 4.4 g/dL (3.5-5.0); Alkaline Phosphatase 71 U/L (39-117); Anion Gap 12 (12-20); Aspartate Amino Transferase 38 U/L (5-37); Blood Urea Nitrogen 13 mg/dL (9-16); Calcium 9.0 mg/dL (8.4-10.2); Carbon Dioxide 25 mmol/L (22-29); Chloride 107 mmol/L (96-108); Estimated Glomerular Filt Rate > 60; Potassium 3.6 mmol/L (3.3-5.1); Sodium 140 mmol/L (135-145); Total Protein 7.0 g/dL (6.5-8.0)
--- OUTSIDE RECORDS SUMMARY | 2025-01-15 12:31 | XMS_ITS ---
Author Name [facility] Organization Unknown Care Team Organization Name Specialty Phone Email Start Date End Da te [facility] Termed, PROVIDER Primary Care 02/24/202211/17
--- OUTSIDE RECORDS SUMMARY | 2025-01-15 12:32 | XMS_ITS | Patient Health Record ---
Author Organization [facility] Address [address] [place] [address] Care Team Providers Care Judicial Clerk Name Role Phone Cody Gibson MD Primary Care Provider Pepe Chauhan Unavailable [phone] Reason For Referral No Information Immunizations Vaccine Route Administration Date Status Comme nts Influenza Unknown 06/02/2022 Refused Social History Tobacco Use: Social History Observation Description Date Details (start date - stop date) Former Smoker NA - NA Tobacco Use/Smoking Question Answer Notes Patient is a former smoker How long has it been since you last smoked? 5-10 years Alcohol Screen Question Answer Notes Did you have a drink contain ing alcohol in the past year? Yes How often did you have a dri nk containing alcohol in the past year? Monthly or less (1 point) How many drinks did you have on a typical day when you were drinking in the past year? 1 or 2 drinks (0 point) How often did you have 6 or more drinks on one occasion in the past year? Never (0 point) Points 1 Interpretation Negative Problems Problem Type SNOMED Code ICD Code Onset Dates Problem Status W/U Status Risk Notes Problem 417829394 Colon cancer screening (Z12.11) Active confirmed Problem 163904367272469 Preprocedural examination (Z01.818) Active confirmed Problem 370075529 History of colonic polyps (Z86.010) Active confirmed Plan Of Treatment Future Test Test Name Order Date COLONOSCOPY 06/02/2022 Insurance Providers Payer Name Payer Address Payer Phone Subscriber Number Group Number Insured Name Patient Relationship to Insured Coverage Start Date Coverage End Date [facility] [address] [place] [phone] [id number] ALAN CARRERO Self - patient is the insured Medical (General) History Medical History History ICD Code Denies MS,DM,CVA,Lung disease,renal dise ase Surgical History Surgery Date(Month/Year) Dr. Meade--Anal Condyloma; the patient also describes a possible colonoscopy on the same day with removal of precancerous polyps and being told to have a repeat exam in 5 years 2013 or 2014 [place] teeth
--- OUTSIDE RECORDS SUMMARY | 2025-01-15 12:32 | XMS_ITS | Patient Health Record ---
Author Organization Cody Gibson MD Address [address] [place], [place] [id number] Care Team Providers Care Floral Arranger Name Role Phone Cody Gibson Primary Care Provider [phone] Allergies No Known Allergies Results Component Value Reference Range Notes Complete Blood Count Auto Di ff (Not yet reviewed by provider) Interpretation: Performing Lab:[facility], [address] [place] [phone] Notes/Report: White Blood Count 6.7 4.8-10.8 X10*3/uL [...] NRBC Abs Auto 0.000 0.0-0.012 X10*3/uL Comprehensive [place]. Panel Fa st (Not yet reviewed by provider) Interpretation: Performing Lab:[facility], [address] [place] [address], [place] [address] Notes/Report: Sodium 140 135-145 mmol/L Lipemic sampl [...] prior to analysis Lipid Panel (Not yet reviewe d by provider) Interpretation: Performing Lab:[facility], [address] [place] [phone] Notes/Report: Triglycerides 542 <150 mg/dL Marked Lipemia. [...] (Not yet reviewed by provider) Interpretation: Performing Lab:[facility], [address] [place] [phone] Notes/Report: Urine, Clean Catch Color Urine Yellow Appearance Urine Clear PH 6.0 5.0-9.0 Glucose Urine UA Negative Negative mg/dL Urine Blood Negative Negative Specific [place] - Urine 1.010 1.005-1.025 Urine Protein Negative Neg-Trace mg/dL Urine Ketones Negative Negative mg/dL Nitrite Urine Negative Negative Leukocyte Esterase Urine Negative Negative RBC Urine 0-2 0-2 /HPF WBC Urine 0-5 0-5 /HPF Squamous Epithelial Cell Urine 0-2 0-2 /HPF Bacteria Urine None Seen None Seen Hyaline Casts Urine 0-2 0-2 /LPF Reason For Referral Reason hemangioma of skin Diagnosis 1 Hemangioma of skin ( D18.01) Referral Organization Cody Gibson MD Referring Provider First Name Cody Referring Provider Last Name Paige Referring Provider Speciality Internal M edicine Referred Provider Martin Garza Dermatol Martin montilla Referred Provider Specialty Dermatology General Notes Jania Davis 01/27/2024 10:51:47 AM EDT > REFERRAL FAXED ON 01/20/24 , I CALLED TO TRY TO GET APPT BUT NO CALL BACK . I GAVE PATIENT THE NUMBER TO CALL THEM FOR APPT, Jania Davis 02/18/2024 01:45:12 PM EDT > N Justin BETITO HAS THE REFERRAL AND ALAN CAN CALL AND MAKE HIS APPT. I DID CALL TO LET HIM KNOW, Jania Davis 03/31/2024 10:12:42 AM EST > APPT 09/01/24 . PATIENT AWARE, Jania Davis 09/04/2024 01:36:48 PM >OFFICE NOTE RECD Referral Priority Routine Referral Appointment Date 09/01/2024 Medications Medication SIG (Take, Route, Frequency, Duration) Notes Start Date End Date Status Ibuprofen 800 MG 1 tablet with food o r milk as needed Orally every 8 hrs for 10 days 09/29/2022 Not-Taki ng Cyclobenzaprine HCl 5 MG 1 tablet at bed time as needed Orally Once a night for 10 days 09/29/2022 Not-Taking Immunizations Vaccine Route Administration Date Status Comme nts SARS-COV-2 Pfizer Unknown 08/17/2020 Administered SARS-COV-2 Pfizer Unknown 09/07/2020 Administered SARS-COV-2 Pfizer Unknown 04/30/2021 Administered Social History Tobacco Use: Social History Observation [...] Never (0 point) Points 4 Interpretation Positive Problems Problem Type SNOMED Code ICD Code Onset Dates Problem Status W/U Status Risk Notes Problem 102588213 High triglycerides (E78.1) Active confirmed Problem Perianal abscess (84758980) Perianal abscess (K61.0) Active confirmed Problem 98885831 Sciatica of righ t side (M54.31) Active confirmed Problem History of polyp of colon (situation) (173905953) History of colon polyps (Z86.010) Active confirmed Problem 64100274 Situational anxiety (F41.8) Active confirmed Vital Signs Blood pressure diastolic 68 mm Hg 01/20/2024 dawson ght is up 8 pounds since 11-12-23 Height 65 in 01/20/2024 weight is up 8 pounds since 11-12-23 Blood pressure systolic 112 mm Hg 01/20/2024 weig ht is up 8 pounds since 11-12-23 Weight 168 lbs 01/20/2024 weight is up 8 pounds since 11-12-23 BMI 27.95 kg/m2 01/20/2024 weight is up 8 pounds since 11-12-23 Encounters Encounter Location Date Provider Diagnosis Cody Gibson MD [address] [place], [place] [id number] 01/20/2024 Cody Gibson Hemangioma of skin D18.01 ; Annual physical exam Z00.00 ; High triglycerides E78.1 and Depression screening Z13.31 Cody Gibson MD [address] [place], [place] [phone] 01/15/2025 Cody Gibson Blood tests for routine general physical examination Z00.00 and High triglycerides E78.1 Assessments Encounter Date Diagnosis (ICD Code) Assessment Notes Treatment Notes Treatment Clinical Notes Section Notes 01/20/2024 Hemangioma of skin (ICD-10 - D18.01) referral to [place] [facility]/ REFERRAL AND NOTES FAXED TO [facility] 01/20/2024 Annual physical exam (ICD-10 - Z00.00) labs reviewed and discused with patient 01/15/2025 Blood tests for routine general physical examination (ICD-10 - Z00.00) 01/20/2024 High triglycerides (ICD-10 - E78.1) stable, will continue current regiment 01/15/2025 High triglycerides (ICD-10 - E78.1) 01/20/2024 Depression screening (ICD-10 - Z13.31) negative screen Plan Of Treatment Pending Test Test Name Order Date Complete Blood Count Auto Diff 5 Comprehensive [place]. Panel Fast 5 Lipid Panel 01/15/2025 UA ClnCatch+Micro w/rflx Cult 01/15/2025 Next Appt Details Provider Name:Cody Givens ier, 01/22/2025 10:30:00 AM, [address], [address], [place], [place], [id number], Insurance Providers Payer Name Payer Address Payer Phone Subscriber Number Group Number Insured Name Patient Relationship to Insured Coverage Start Date Coverage End Date [facility] [id number] [facility] [address] [place] [phone] [id number] Alan Rogers Self - patient is the insured Medical (General) History Medical History History ICD Code colon polyps 2014 condyloma 2014 Condyloma acuminata A63.0 colonoscopy 2022. negative and repeat in 10 years
== END 2025-01-15 11:03 | disposition home or self-care (01) ==
LOC: HO.LNP 11:02
PROVIDERS: Visit Provider Internal Medicine
DX: Z00.00 Encounter for general adult medical examination without abnormal findings (principal); E78.1 Pure hyperglyceridemia
CPT/HCPCS: 80053; 80061; 81001; 83721; 85025